=== PATIENT | female | born 1965 ===

== ENCOUNTER 2019-02-23 14:24 | Outpatient (CLI) | payer OTHER ==
[~2019-02-23] VITALS: Ht 162.6 cm; Wt 78.0 kg
== END 2019-02-23 14:40 | disposition home or self-care (01) ==
LOC: OFIC 805 14:24
DX: H60.8X3 Other otitis externa, bilateral (principal); M62.838 Other muscle spasm; H61.23 Impacted cerumen, bilateral

== ENCOUNTER 2019-02-23 16:09 | Outpatient (CLI) | payer OTHER | END 2019-02-23 16:20 | disposition home or self-care (01) | LOC: LAB 16:09 | DX: H61.90 Disorder of external ear, unspecified, unspecified ear (principal) ==